=== PATIENT | female | born 1960 | race Caucasian/White ===

== ENCOUNTER → 2016-11-01 | Outpatient (CLI) | payer BC | LOC: MAMMO 14:43 | DX: Z12.31 Encounter for screening mammogram for malignant neoplasm of breast (principal) | CPT/HCPCS: G0202 ==

== ENCOUNTER → 2016-11-21 | Day surgery (SDC) | payer BC | LOC: MSO 07:03 | DX: Z12.11 Encounter for screening for malignant neoplasm of colon (principal); E66.9 Obesity, unspecified | CPT/HCPCS: 00810; J3010; J7120 ==

== ENCOUNTER → 2020-12-21 | Outpatient (CLI) | payer OTHER ==
[2020-12-21 16:35] LABS: BASO # 0.07 (0.02-0.10); EOS # 0.38 (0.04-0.40); EOS % 2.8 % (1.0-5.0); HEMATOCRIT 52.2 % (37.0-47.0); HEMOGLOBIN 16.9 g/dL (12.5-16.0); LYMPH# 3.55 (1.50-4.00); MEAN CELL VOLUME 92 fl (78-100); MEAN CORPUSCULAR HEMOGLOBIN 30 pg (27-31); MEAN CORPUSCULAR HGB CONC 32 g/dL (33-37); MEAN PLATELET VOLUME 8.5 fl (7.4-10.4); MONO # 1.01 (0.20-0.80); NEU # 8.51 (1.40-6.50); PLATELET COUNT 275 K/mm3 (130-400); RED BLOOD COUNT 5.67 M/mm3 (4.10-5.30); RED CELL DISTRIBUTION WIDTH 13.9 % (11.5-14.5); WHITE BLOOD COUNT 13.6 K/mm3 (4.8-10.8)
[2020-12-21 16:47] LABS: ALBUMIN 4.4 g/dL (3.4-4.8); POTASSIUM 5.6 mmol/L (3.5-5.1); SODIUM 142 mmol/L (136-145)
[2020-12-21 16:50] LABS: GLUCOSE 104 mg/dL (65-105); TOTAL PROTEIN 8.3 g/dL (6.2-8.1)
[2020-12-21 16:51] LABS: CARBON DIOXIDE 23 mmol/L (23-31)
[2020-12-21 16:52] LABS: TOTAL BILIRUBIN 0.4 mg/dL (0.2-1.2)
[2020-12-21 16:55] LABS: AST-SGOT 22 U/L (5-34)
[2020-12-21 16:56] LABS: ALT/SGPT 29 U/L (0-55)
[2020-12-21 17:50] LABS: TROPONIN-I < 0.03 ng/mL (<0.030)
[2020-12-21 19:03] LABS: URINE APPEARANCE HAZY; URINE COLOR YELLOW; URINE PROTEIN(semi-quant) 1+ mg/dL (NEGATIVE)
[2020-12-21 19:04] LABS: URINE BILIRUBIN NEGATIVE (NEGATIVE); URINE BLOOD 50 ery/uL (NEGATIVE); URINE GLUCOSE NEGATIVE (NEGATIVE); URINE KETONE NEGATIVE (NEGATIVE); URINE LEUKOCYTE ESTERASE 2+ (NEGATIVE); URINE MUCUS PRESENT (NOT PRESENT); URINE NITRATE NEGATIVE (NEGATIVE); URINE UROBILINOGEN NORMAL (NORMAL); URINE WBC >50 /hpf (0-3)
== END ==
LOC: LAB 16:20
PROVIDERS: Surgery
DX: R55 Syncope and collapse (principal)

== ENCOUNTER → 2020-12-22 | Outpatient (CLI) | payer OTHER ==
[2020-12-22 16:05] LABS: POTASSIUM 4.1 mmol/L (3.5-5.1)
[2020-12-22 16:06] LABS: CALCIUM 10.3 mg/dL (8.3-10.5)
== END ==
LOC: LAB 15:27
PROVIDERS: Nurse Practitioner Family
DX: E87.5 Hyperkalemia (principal)